=== PATIENT | male | born 1950 | race Caucasian/White ===

== ENCOUNTER 2020-09-04 06:16 | Day surgery (SDC) | payer MEDICARE, OTHER ==
[~2020-09-04] VITALS: Ht 170.2 cm; Wt 87.0 kg
[~2020-09-04 06:16] MED LIST: HYDROmorphone 2 MG/ML VIAL IVP PRN; IV RINGERS,LACTATED 1000ML 1,000 ML IV SCH; MORPHINE SULFATE 2 MG/ML VIAL. IVP PRN; PROCHLORPERAZINE 10 MG/2 ML VIAL. IVP PRN; fentaNYL PF VIAL 100 MCG/2 ML VIAL IVP PRN
[2020-09-04] MEDS ORDERED: LEVO125T PO (06:52)
[2020-09-04] MEDS ORDERED: CELE200C PO (06:52)
[2020-09-04] MEDS ORDERED: ASPI-630 PO (06:52)
[2020-09-04] MEDS ORDERED: OMEP20TA63 PO (06:52)
[2020-09-04] MEDS ORDERED: VERA240C2 PO (06:52)
[2020-09-04] MEDS ORDERED: SIMV10TA PO (06:52)
[2020-09-04] MEDS ORDERED: MULT-496 PO (06:54)
[2020-09-04] MEDS ORDERED: LIDOCAINE 2% PF 5 ML VIAL. ONE (06:59)
[2020-09-04] MEDS ORDERED: SUCCINYLCHOLINE 200 MG/10 ML VIAL. ONE (06:59)
[2020-09-04] MEDS ORDERED: PROPOFOL 10 MG/ML (20ML) VIAL. IV ONE (06:59)
[2020-09-04] MEDS ORDERED: ROCURONIUM 50 MG/5 ML VIAL. ONE (07:00)
[2020-09-04] MEDS ORDERED: fentaNYL PF VIAL 100 MCG/2 ML VIAL ONE (07:00)
[2020-09-04] MEDS ORDERED: EPINEPHrine NASAL 30 MG/30 ML BOTTLE ONE (07:16)
[2020-09-04] MEDS ORDERED: LIDOCAINE 1%/EPI 1:100,000 20 ML VIAL. ONE (07:16)
[2020-09-04] MEDS ORDERED: ONDANSETRON PF 4 MG/2 ML VIAL. ONE (07:44)
[2020-09-04] MEDS ORDERED: DEXAMETHASONE SOD PHOS 4 MG/ML VIAL ONE (07:44)
[2020-09-04] MEDS ORDERED: GLYCOPYRROLATE 1 MG/5 ML VIAL. ONE ×2 (08:07)
[2020-09-04] MEDS ORDERED: NEOSTIGMINE METHYLSULFATE 5 MG/5 ML SYRINGE. ONE (08:07)
[2020-09-04] MEDS ORDERED: SEVOFLURANE 31 TO 60 MINUTES. IH ONE (08:07)
[2020-09-04 09:08] VITALS: BP 135/81
--- NOTE | 2020-09-05 15:28 | OP ---
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 PROCEDURE PERFORMED: Biopsy of a tongue base neoplastic lesion. ANESTHESIA: General anesthetic. ESTIMATED BLOOD LOSS: 20 mL. DESCRIPTION OF PROCEDURE: The patient was brought to the operating room and placed on the operating room table in supine position and given a general anesthetic. When he was safely intubated with a 6.0 intubation tube, an examination of his neck soft tissue was completed under anesthesia and no distinctive adenopathy enlargement was noted in the neck soft tissue on either side. The larynx was midline and had good mobility. The oral cavity was then gently palpated and no distinctive lesions in the oral buccal mucosa and the floor of the mouth or the surface of the tongue was noted. Then, palpation of the tongue base was accomplished and no distinctive tissue induration. No abnormalities were palpated. A laryngoscope was then utilized to examine the oropharynx and the larynx. The endoscope was gently inserted along the endotracheal tube until the vocal cords were encountered. The entry of the endotracheal tube was noted through the glottis and no glottic deformities were noted. Anterior and posterior commissure were normal in appearance. Free edge of the glottis was noted to be normal. The surrounding glottic tissue was examined without difficulty. No abnormalities were noted there. Laryngeal tissue was smooth and without defect. The endoscope was then gradually withdrawn. The aryepiglottic folds were noted. No abnormality on either side and the epiglottis was approached without any mucosal irregularity. The vallecula was also examined. It was free of any tissue deformity. As the endoscope was gradually withdrawn, the tongue base was then noted and on the left side, the lateral harvey were free of any abnormality, but has progression of examination to cross the midline to the right was carried out. There was noted to be deformity of the mucosa and enlargement, which developed into a nodular mass-like structure that measured approximately 1-1.5 cm in diameter. It was firm. The mucosa over the surface had a fragileness and with aggressive passage of the endoscope across the surface some minor tissue disruption was noted. The lesion was approximately 1.5 cm in height and was examined up to the base of the tongue and no abnormality from that point beyond was noted. Suction and clearing of the larynx was accomplished and then the endoscope was firmly held in position. Palpation of the lesion was then accomplished with a suction and some fragileness was confirmed at that point. Biopsy was then obtained by using cup forceps and two successive biopsies were taken along the right lateral margin attempting to obtain what appeared to be normal tissue including the abnormal tissue and that was procured and then set in formalin. Bleeding was then controlled and a second biopsy was taken more medial with the same process taking psychiatric sections with a cup forceps. Bleeding was then controlled using adrenaline-soaked cottonoids and an adrenaline-soaked tonsil sponges. They were placed over the lesion site at the biopsy site. Light pressure was applied when complete. Bleeding was being controlled some 1% lidocaine with epinephrine, approximately 2 mL was injected into the base and this was allowed to have effect. Bleeding was then completely controlled. Further examination revealed no other additional abnormalities with bleeding completely controlled. The larynx was then reexamined and it was clear of any clotted blood. Irrigation was then accomplished. The airway was cleaned and the procedure was completed. The patient was then recovered from his anesthesia and taken to the recovery room in stable condition. JOLYNN PALMER DO DR: DOLORES/ras JOB#: [id number] / [id number]
--- NOTE | 2020-09-07 14:10 | PATHOLOGY ---
[facility] Accession Number: [id number] . 01 Material submitted: . PART A: tongue - TONGUE BASE LESION. Modifiers: base PART B: tongue - TONGUE BASE LESION. Modifiers: base . 01 Clinical history: . LARYNGOSCOPY WITH BIOPSY TONGUE BASE LESION . 02 Diagnosis: A. Segments of squamous mucosa and submucosa, tongue base lesion #1 biopsy: - Lingual tonsil showing reactive lymphoid hyperplasia/chronic inflammation. . B. Squamous mucosa and submucosa, tongue base lesion #2 biopsy: - Lingual tonsil showing reactive lymphoid hyperplasia/chronic inflammation. LBQ 09/07/2020 1027 Local . 02 Comment: Sections of the tongue base lesion biopsies appear similar and reveal segments of squamous mucosa and submucosal tissue. The squamous mucosa appears hyperplastic. There is a prominent lymphoid infiltrate within the submucosa. There are lymphoid follicles present within the lymphoid infiltrate which contain germinal centers. The interfollicular areas are comprised of small lymphocytes and focally prominent numbers of plasma cells. There are also foci of degeneration. There is no atypical large lymphoid cell infiltrate. There are no Anibal-Jena cells or variants. There is no evidence of epithelial malignancy. A panel of immunoperoxidase stains is obtained on block A1 and yields the following results: . CD20: Lymphoid cells of lymphoid follicles positive PAX5: Lymphoid cells of lymphoid follicles positive CD3: Interfollicular lymphoid cells positive CD5: Interfollicular lymphoid cells positive similar to CD3 CD23: Dendritic cell meshwork of lymphoid follicles positive CD10: Lymphoid cells of germinal centers positive BCL2: Lymphoid cells of germinal centers negative BCL6: Lymphoid cells of germinal centers positive Cyclin D1: Lymphoid cells of lymphoid infiltrate negative CD138: Plasma cells positive [place] and lambda ISABELLA: Plasma cells are polyclonal . A properly controlled GMS stain for yeast/fungi is also obtained and yields the following results: . GMS (A1): Negative for yeast/fungi GMS (B1): Negative for yeast/fungi . The morphologic and immunophenotypic findings are supportive of the diagnosis of lingual tonsil showing reactive lymphoid hyperplasia and chronic inflammation. There is no evidence of malignancy. . Immunoperoxidase stains are all performed on A1 and include CD20, PAX5, CD3, CD5, CD23, CD10, BCL2, BCL6, Cyclin D1, CD138, and the in situ hybridization is kappa ISABELLA and lambda ISABELLA both on A1 and the GMS stain is on A1 and B1. (JPM/db; 09/07/2020) . 02 Electronically signed: . Vito Blankenship MD, Pathologist NPI- [id number] . 01 Gross description: . A. Received in formalin labeled "Salazar, Sony and tongue base lesion #1". Received are two segments of rebolledo-brown tissue ranging from 0.4 to 0.5 cm. The surgical margins are inked black. Bisecting the fragments reveal firm rebolledo-brown cut surfaces and no other grossly apparent lesions. Specimen is entirely submitted in cassette A1. . B. Received in formalin labeled "Salazar, Sony and tongue base lesion #2". Received are three segments of pink-rebolledo tissue ranging from 0.3 to 0.4 cm. The surgical margins are inked black. The fragments are submitted for whole in cassette B1. (LOCATED WITHIN [facility]; 09/04/2020) . . BLJ/J 09/07/2020 0959 Local . 02 Pathologist provided ICD-10: K14.0 . 02 CPT . 539273, 722435, J98229, D06310, 707384, 513237, [id number], [id number] Specimen Comment: A courtesy copy of this report has been sent to [phone] Specimen Comment: Report sent to Performed at: 01 [facility] [address], [place] [id number] MD Pernell Myers MD Phone: [phone] Performed at: 02 [facility] [address], [place] [id number] MD Vito Blankenship MD Phone: [phone]
== END 2020-09-04 09:43 | disposition home or self-care (01) ==
LOC: SURG 06:16
PROVIDERS: ATTEND Otolaryngology
DX: K14.0 Glossitis (principal); J44.9 Chronic obstructive pulmonary disease, unspecified; K21.9 Gastro-esophageal reflux disease without esophagitis; M19.90 Unspecified osteoarthritis, unspecified site; E03.9 Hypothyroidism, unspecified; Z79.82 Long term (current) use of aspirin; Z79.899 Other long term (current) drug therapy; Z98.890 Other specified postprocedural states; Z87.891 Personal history of nicotine dependence; Z72.89 Other problems related to lifestyle; Z88.1 Allergy status to other antibiotic agents; Z88.8 Allergy status to other drugs, medicaments and biological substances
CPT/HCPCS: 41100; A4930; A6254; J0330; J1100; J2405; J2704; J2710; J3010; J3490; 88305; 88312; 88341; 88342; 88364; 88365; A4322; A4657